=== PATIENT | female | born 1960 | race Caucasian/White ===

== ENCOUNTER 2023-10-16 16:11 | Emergency (ER) | payer SELFPAY ==
[~2023-10-16] VITALS: Ht 162.6 cm; Wt 90.0 kg
[2023-10-16 16:15] VITALS: BP 165/92; PULSE 84; RESP 18; TEMP 98.4; O2SAT 99
== END 2023-10-16 18:53 | disposition left against medical advice (07) ==
LOC: ER 16:11
DX: F41.9 Anxiety disorder, unspecified (principal); Z53.21 Procedure and treatment not carried out due to patient leaving prior to being seen by health care provider
CPT/HCPCS: 99283